=== PATIENT | female | born 1985 | race Caucasian/White ===

== ENCOUNTER 2017-12-07 08:10 | Inpatient (IN) | payer OTHER, SELFPAY ==
--- NOTE | 2017-12-07 08:55 | PCM.HP.OB ---
- Problem List (1) Language barrier affecting health care Status: Acute (2) Precipitous delivery, delivered (current hospitalization) Status: Resolved History Date of Admission: 12/07/17 Final JOVANNY: 12/22/17 Final JOVANNY Source: LMP Gestational age: 37 Weeks and 6 Days History of this : See [facility] Records for more Information Initiated care @ 13 weeks x 9 visits No complications noted with care Pertinent Past Medical History: Noncontributory No known Allergies Vitamin Smoking Status: Never smoker Alcohol: None Drug Use: none Number of Fetus(es): 1 Review of Systems Constitutional: Denies: Chills, Fever, Weight Change HEENT: Denies: Head Aches, Sinus Congestion, Sinus Drainage Cardiovascular: Denies: Chest Pain, Palpitations Respiratory: Denies: Cough, Shortness of breath at rest, Sputum production Gastrointestinal: Denies: Abdominal Pain, Nausea, Vomiting Genitourinary: Denies: Dysuria Gynecological: Denies: Vaginal discharge Musculoskeletal: Denies: Joint Pain, Joint Tenderness Skin: Denies: Rash Neurological: Denies: Numbness, Tingling, Focal weakness Psychiatric: Denies: Anxiety, Depression, Homicidal Ideations, Suicidal Ideations Hematologic/ Lymphatic: Denies: Easy Bruising, Easy Bleeding Unable to obtain accurate/complete ROS d/t: ROS obtained with assistance from Physical Exam Vitals: See Nursing Note for Vital Signs See Vaginal Delivery Report for information re: precipitous vaginal delivery General: Alert, Oriented x3, No apparent distress Cardiovascular: Regular rate, Regular Rhythm Lungs: Clear to auscultation, Normal air movement Abdomen: Bowel Sounds Present, Non Tender, - - FF midline @ umbilicus Extremities:: No edema Assessment/Plan Active and Suspected Problems Language barrier affecting health care (Acute) A: 32 y/o @ 37.6 weeks, Precipitous Vaginal Delivery without Complication, Stable P: 1) Admit patient - start PP orders at this time. 2) Dr. Aly LARA notified of admission and delivery Mayelin Calderón CNM
[2017-12-07 08:57] VITALS: BMI 33.8
[2017-12-07 09:01] LABS: Hematocrit 42.2 % (37-47); Hemoglobin 13.9 g/dl (12.0-15.0); Mean Corp Hgb Conc 32.9 g/gl (32-36); Mean Corpuscular Hgb 31.8 pg (27.0-32.0); Mean Corpuscular Volume 96.6 fL (81-99); Mean Platelet Vol. 11.5 fl (6.2-12.0); Platelet Count 199 K/mm3 (150-450); RBC Distribution Width CV 14.2 % (11.6-14.6); RBC Distribution Width SD 50.2 fl (35.1-43.9); Red Blood Count 4.37 M/mm3 (4.2-5.4); White Blood Count 11.8 K/mm3 (4.4-11.0)
[2017-12-07 09:02] LABS: Scan Indicated on CBC? Y/N NO
--- NOTE | 2017-12-07 09:04 | HP.PCM_ITS ---
- Problem List (1) Language barrier affecting health care Status: Acute (2) Precipitous delivery, delivered (current hospitalization) Status: Resolved History Date of Admission: 12/07/17 Final JOVANNY: 12/22/17 Final JOVANNY Source: LMP Gestational age: 37 Weeks and 6 Days History of this : See [facility] Records for more Information Initiated care @ 13 weeks x 9 visits No complications noted with care Pertinent Past Medical History: Noncontributory No known Allergies Vitamin Smoking Status: Never smoker Alcohol: None Drug Use: none Number of Fetus(es): 1 Review of Systems Constitutional: Denies: Chills, Fever, Weight Change HEENT: Denies: Head Aches, Sinus Congestion, Sinus Drainage Cardiovascular: Denies: Chest Pain, Palpitations Respiratory: Denies: Cough, Shortness of breath at rest, Sputum production Gastrointestinal: Denies: Abdominal Pain, Nausea, Vomiting Genitourinary: Denies: Dysuria Gynecological: Denies: Vaginal discharge Musculoskeletal: Denies: Joint Pain, Joint Tenderness Skin: Denies: Rash Neurological: Denies: Numbness, Tingling, Focal weakness Psychiatric: Denies: Anxiety, Depression, Homicidal Ideations, Suicidal Ideations Hematologic/ Lymphatic: Denies: Easy Bruising, Easy Bleeding Unable to obtain accurate/complete ROS d/t: ROS obtained with assistance from Physical Exam Vitals: See Nursing Note for Vital Signs See Vaginal Delivery Report for information re: precipitous vaginal delivery General: Alert, Oriented x3, No apparent distress Cardiovascular: Regular rate, Regular Rhythm Lungs: Clear to auscultation, Normal air movement Abdomen: Bowel Sounds Present, Non Tender, - - FF midline @ umbilicus Extremities:: No edema Assessment/Plan Active and Suspected Problems Language barrier affecting health care (Acute) A: 32 y/o @ 37.6 weeks, Precipitous Vaginal Delivery without Complication, Stable P: 1) Admit patient - start PP orders at this time. 2) Dr. Aly LARA notified of admission and delivery Mayelin Calderón CNM
--- NOTE | 2017-12-07 09:05 | PCM.OB.VAG ---
- Problem List (1) Language barrier affecting health care Status: Acute (2) Precipitous delivery, delivered (current hospitalization) Status: Resolved Vaginal Delivery Maternal Presentation: Active Labor, Spontaneous Rupture of Membranes Amniotic Membrane Rupture Type: Spontaneous Rupture of Membrane time: 744 Amniotic Fluid Description: Clear Final JOVANNY: 12/22/17 Gestational age: 37 Weeks and 6 Days Date of Procedure: 12/07/17 Pre-Operative Diagnosis: Second stage of labor Post-Operative Diagnosis: of viable girl Surgery/ Procedure Performed: Spontaneous Vaginal Delivery Type of Anesthesia: None Description of Procedure: Patient presented to triage in wheelchair in advanced active labor. Patient reports sudden onset of contractions this morning within last hour, denied having regular contractions, vaginal bloody show or SROM. When patient moved from wheelchair to bed, bulge in pants noted from nursing staff. When pants removed baby's head was . Spontaneous delivery of occurred at approximately 0815 with subsequent quick spontaneous delivery of placenta. Nursing staff in attendance of - this budget controller provider was called from home to attend to afterbirth care and evaluation of precipitous delivery. Apgars 8 and 9. weight pending. Placenta intact with 3VC, placental triage WNL. Upon inspection of vaginal vault, no lacerations noted. FF midline @ 2FB below umbilicus. EBL = 100cc. Vaginal sweep negative. Baby to breast, [id number] and bonding initiated. Mayelin Calderón CNM Presentation: Vertex Placental Delivery Description: Spontaneous Placenta Disposition: [facility] Cord Vessel Description: 3 Vessels Cord Entanglement: None Estimated Blood Loss: 100 A gender: Female (1 minute): 8 (5 minute): 9 Episiotomy Description: None Laceration: None Medications given after delivery: IV Pitocin Complications: None
--- NOTE | 2017-12-07 09:13 | OP.PCM_ITS ---
- Problem List (1) Language barrier affecting health care Status: Acute (2) Precipitous delivery, delivered (current hospitalization) Status: Resolved Vaginal Delivery Maternal Presentation: Active Labor, Spontaneous Rupture of Membranes Amniotic Membrane Rupture Type: Spontaneous Rupture of Membrane time: 744 Amniotic Fluid Description: Clear Final JOVANNY: 12/22/17 Gestational age: 37 Weeks and 6 Days Date of Procedure: 12/07/17 Pre-Operative Diagnosis: Second stage of labor Post-Operative Diagnosis: of viable girl Surgery/ Procedure Performed: Spontaneous Vaginal Delivery Type of Anesthesia: None Description of Procedure: Patient presented to triage in wheelchair in advanced active labor. Patient reports sudden onset of contractions this morning within last hour, denied having regular contractions, vaginal bloody show or SROM. When patient moved from wheelchair to bed, bulge in pants noted from nursing staff. When pants removed baby's head was . Spontaneous delivery of occurred at approximately 0815 with subsequent quick spontaneous delivery of placenta. Nursing staff in attendance of - this ground host/hostess provider was called from home to attend to afterbirth care and evaluation of precipitous delivery. Apgars 8 and 9. weight pending. Placenta intact with 3VC, placental triage WNL. Upon inspection of vaginal vault, no lacerations noted. FF midline @ 2FB below umbilicus. EBL = 100cc. Vaginal sweep negative. Baby to breast, skin -to-skin and bonding initiated. Mayelin Calderón CNM Presentation: Vertex Placental Delivery Description: Spontaneous Placenta Disposition: [facility] Cord Vessel Description: 3 Vessels Cord Entanglement: None Estimated Blood Loss: 100 Infant A gender: Female (1 minute): 8 (5 minute): 9 Episiotomy Description: None Laceration: None Medications given after delivery: IV Pitocin Complications: None
[2017-12-07 10:48] VITALS: BP 127/68; PULSE 75; RESP 16; TEMP 36.6; O2SAT 99
[2017-12-07 13:50] VITALS: BP 90/50; PULSE 66; RESP 16; TEMP 36.4; O2SAT 99
[2017-12-07 17:01] VITALS: BP 94/49; PULSE 54; RESP 16; TEMP 36.4; O2SAT 99
[2017-12-07 19:40] VITALS: BP 102/59; PULSE 75; RESP 16; TEMP 37.1; O2SAT 96
[2017-12-08] VITALS: BP 94/47; PULSE 70; RESP 18; TEMP 37.1; O2SAT 97
[2017-12-08 04:32] VITALS: BP 99/52; PULSE 68; RESP 18; TEMP 37.2; O2SAT 100
[2017-12-08 09:00] VITALS: BP 103/65; PULSE 78; RESP 18; TEMP 37.3; O2SAT 98
--- NOTE | 2017-12-08 09:37 | NURSING ---
Patient and spouse given [facility] booklet, safe sleep brochure, and hepatitis B handouts in [place]ovan. The patient's spouse speaks Norwegian. Verbal discharge instructions given to spouse. He states they feel comfortable going home and deny having questions at this time.
--- NOTE | 2017-12-08 09:39 | DCINST_ITS ---
Discharge Diet: No Restrictions Discharge Activity: Return to Normal Activity, May not drive while taking narcotic pain medications., May Shower May resume sexual activity in: 4-6 weeks Additional Activity Instructions:: Nothing in the vagina for 4-6 weeks. You may return to work/school in 6 weeks. Call your doctor if your incision/area has: Continuous Slow Oozing, Sudden Increased Bleeding, Increased Pain/ Swelling, Increased Redness, Foul Smelling Discharge Call your doctor if you observe: Fever of 101 or Higher, Inability to urinate, Inability to have a bowel movement, Using more than one pad per hour Additional Instructions: If you experience any of the following, contact your healthcare provider. * Bleeding that soaks a pad every hour for 2 hours * Fever 100.4 or higher * Unrelieved incision or abdominal pain * Swelling, redness, discharge or bleeding from your incision or episiotomy site * Your incision begins to separate * Problems urinating (including inability to urinate or burning while urinating) . * Visual changes * Severe headache * Flu-like symptoms * Pain or redness in one of both of your breasts * Pain, warmth, tenderness or swelling in your legs, especially the calf area * Frequent nausea and vomiting * Symptoms of depression or anxiety If you experience any of the following, call 911 or go to the nearest Emergency Room. * Chest pain * Problems breathing * Seizure activity * Partial or complete paralysis of a body part, slurred speech, weakness or drooping of the face, or a sudden inability to walk or hold your balance Allergies/Adverse Reactions: Allergies No Known Allergies Allergy (Verified 12/07/17 08:58) Medications to take at Discharge Vit Calc,Iron,Folic [ Vitamins] 1 tab PO DAILY 12/07/17 When: Call to make an appointment with your doctor in 4 or 5 weeks for pre-op visit to plan tubal ligation surgery
--- NOTE | 2017-12-08 09:41 | PCM.PN.BLA ---
Progress Note S: Patient in bed, denies any issues or pain at this time. This swiss-speaking provider also assisted in translation of rounds visit by assistance from patient's . Patient denies abdominal pain, SCHULTZ, blurred vision or issues with urination or ambulation. Patient desires discharge to home today. Patient desires tubal ligation surgery, discussed how the scheduling for that procedure would be done. All patient questions answered. O: VSS, Afebrile Breasts without erythema, no cracks or blisters on nipples Abdomen NT x 4 quadrants, FF midline 2FB below umbilicus Scant rubra lochia, perineum intact Negative calf tenderness to palpation, +2/4 reflexes in LE, no edema A: 32 y/o s/p without complication, PPD #1, Normal course P: 1) Discharge to home today pending discharge 2) Patient to RTC at [facility] office for pre-op visit with MD to schedule PPTL surgery 3) Anticipatory discharge PP teaching reviewed Mayelin Calderón CNM
--- NOTE | 2017-12-08 09:48 | PN_ITS ---
Progress Note S: Patient in bed, denies any issues or pain at this time. This east timorese- speaking provider also assisted in translation of rounds visit by assistance from patient's . Patient denies abdominal pain, SCHULTZ, blurred vision or issues with urination or ambulation. Patient desires discharge to home today. Patient desires tubal ligation surgery, discussed how the scheduling for that procedure would be done. All patient questions answered. O: VSS, Afebrile Breasts without erythema, no cracks or blisters on nipples Abdomen NT x 4 quadrants, FF midline 2FB below umbilicus Scant rubra lochia, perineum intact Negative calf tenderness to palpation, +2/4 reflexes in LE, no edema A: 32 y/o s/p without complication, PPD #1, Normal course P: 1) Discharge to home today pending discharge 2) Patient to RTC at [facility] office for pre-op visit with MD to schedule PPTL surgery 3) Anticipatory discharge PP teaching reviewed Mayelin Calderón CNM
--- NOTE | 2017-12-08 11:11 | NURSING ---
Mother and infant ID bands verified by mother and father of baby.
== END 2017-12-08 11:00 | disposition home or self-care (01) | DRG 775 ==
PROVIDERS: Admitting Provider Obstetrics & Gynecology; Visit Provider Obstetrics & Gynecology
DX: O62.3 Precipitate labor (principal); O42.02 Full-term premature rupture of membranes, onset of labor within 24 hours of rupture; Z3A.37 37 weeks gestation of pregnancy; Z37.0 Single live birth; Z60.3 Acculturation difficulty
CPT/HCPCS: 85027; 86850; 86900; 99218; G0378

== ENCOUNTER 2018-01-23 09:38 | Day surgery (SDC) | payer OTHER, SELFPAY ==
[2018-01-23] VITALS (7 sets, daily range): BP systolic 104–122; BP diastolic 73–79; PULSE 66–85; RESP 16–18; TEMP 36.6–37.1; O2SAT 94–98; BMI 29.0
--- NOTE | 2018-01-23 | FALS_PTH ---
PATIENT: ANTHONY GARDINER LOC: [facility] – [place] U#:[id number] AGE/SX: 32/F ROOM: RE01/23/[address]: Dr. Becka Lu MD : [id number] BED: DIS: 01/23/2018 SPEC #: [id number] RECD: 01/24/18 13:18 STATUS: KIM RECyn #: [id number] KUSUM: 01/23/18 00:[address]: Becka Lu DEPT: SURGICAL PATHOLOGY RECD BY: Henrik Aponte ENTERED: 01/24/18 13:18 SP TYPE: FALL TUBES OTHR DR: No Primary Care Phys Tissues: Fallopian tube Procedures: Surgery Specimen Level II HEADER OPERATION: Laparoscopic salpingectomy PRE-OP DIAGNOSIS: Sterilization request TISSUE SUBMITTED: Bilateral fallopian tubes MICROSCOPIC DIAGNOSIS Bilateral fallopian tubes, salpingectomy: Bilateral fallopian tubes including fimbrial ends, no pathologic diagnosis. SJ:juve 01/28/18 MICROSCOPIC DESCRIPTION Slides are reviewed. GROSS DESCRIPTION Received is one container labeled with the patient's name and designated bilateral fallopian tubes. The specimen consists of bilateral fallopian tubes including fimbrial ends. The tubes are not identified as right or left. One of the fallopian tubes measure 6.5 cm in length and 0.6 cm in diameter and the second fallopian tube measures 6 cm in length and 0.6 cm in diameter. Sections reveal unremarkable cut surfaces. Full Stack Web Developer sections are submitted in two cassettes with each cassette containing one fallopian tube. / DAVON:juve 01/24/18 TC:4 CPT: 30994 x2
[2018-01-23 10:05] LABS: Internal QC Validated? YES +Cl - CLEAR BKGD; Pregnancy, Urine Negative Negative
[2018-01-23] MEDS: Celecoxib 200 MG Capsule PO (10:37)
[2018-01-23] MEDS: Acetaminophen 500 MG Tablet 1000 MG PO (10:37)
[2018-01-23] MEDS: Ondansetron ODT 4 MG Tablet 16 MG PO (10:38)
[2018-01-23] MEDS: Gabapentin 600 MG Tablet PO (10:38)
--- NOTE | 2018-01-23 13:15 | DCINST_ITS ---
Discharge Diet: No Restrictions - Increase fluid intake for the next 48 hours. Discharge Activity: Return to Normal Activity, May Drive - when you are no longer taking pain/narcotic meds., May Shower, May Take a Tub Bath - in 7 days Return to work on:: 01/27/18 May resume sexual activity in: No Restrictions Additional Activity Instructions:: Ambulate often the next week after surgery. Nothing in the vagina for 5 days. Call your doctor if your incision/area has: Continuous Slow Oozing, Sudden Increased Bleeding, Increased Pain/ Swelling, Increased Redness, Foul Smelling Discharge Call your doctor if you observe: Fever of 101 or Higher Allergies/Adverse Reactions: Allergies No Known Allergies Allergy (Verified 01/21/18 14:46) Medications to take at Discharge Hydrocodone/Acetaminophen [[place] 5-325 Tablet] 1 each PO Q6H PRN PRN 3 Days #10 tablet 01/23/18 Ibuprofen [Motrin] 600 mg PO Q6H PRN #60 tab 01/23/18 The following prescriptions were given: Hydrocodone/Acetaminophen [[place] 5-325 Tablet] 1 each PO Q6H PRN PRN 3 Days #10 tablet PRN Reason: Pain Ibuprofen [Motrin] 600 mg PO Q6H PRN #60 tab PRN Reason: Pain Primary Care Physician: Care Physician,No Primary [Primary Care Provider] - Please Follow Up With: Becka Lu MD - [phone] When: 4-6 weeks or prn
--- NOTE | 2018-01-23 13:17 | PCM.OPRPT ---
Report of Operation Date of Procedure: 01/23/18 Pre-Operative Diagnosis: sterilization Post-Operative Diagnosis: same Surgery/Procedure Performed:: laprascopic bilateral salpingectomy inside steward/stewardess: None Type of Anesthesia:: General Anesthesiologist: Donna Way Special Medications: none Specimen's removed: bilateral tubes Drains: none Estimated Blood Loss (mL): 10cc Fluids Replaced: 1500 cc Description of Procedure: The patient was taken to the operating room where she was prepped and draped in the dorsolithotomy position. A weighted speculum was placed in the vagina and the anterior lip of the cervix was grasped with a tenaculum. The Norma uterine manipulator was placed and the remainder of the instruments were removed from the vagina. Attention was turned to the abdomen. All port sites were infiltrated with 0.5% Marcaine before skin incisions were made. A 5 mm intraumbilical incision was made. The anterior abdominal wall was tented up with 2 towel clamps while a 5 mm blade less trocar and sleeve were directly inserted. Intraperitoneal placement was confirmed with the laparoscope. The pneumoperitoneum was created and the underlying abdominal contents were intact. The patient was placed in Trendelenburg. A right lower quadrant port was placed under direct visualization without difficulty. The alligator grasper was placed directly approximately 3 cm above the symphysis. The LigaSure device was used to clamp seal and transect the antimesenteric portions of the right tube to the cornual insertion of the uterus. The tube was amputated from the uterus and the pedicles were all confirmed to be hemostatic. The same procedure was performed on the contralateral side. The specimens were brought out through a 5 mm port. The pedicles were again examined and found to be hemostatic. The lateral ports were removed under direct visualization and no active bleeding was noted. The pneumoperitoneum was released. The skin incisions were closed with Monocryl suture in a subcuticular fashion and skin glue . The vaginal instruments were removed and the vaginal sweep was completed by me. The procedure was performed by me with assistance other than as dictated above. All sponge and needle counts were correct and the patient was taken to the recovery room in stable condition. Grafts/Implants Used: none - Complications none - Admit VTE Documentation VTE Present on Admission: No VTE Mechan Device Prophylaxis: SCD's VTE Pharm Prophylaxis ordered?: No Reason prophylaxis not ordered:: Procedure Not Indicated
[2018-01-23] MEDS: Bupivacaine Mpf 0.5% 30 ML VIAL (13:23)
== END 2018-01-23 17:22 | disposition home or self-care (01) ==
LOC: SDC 09:41 → AC 10:28
PROVIDERS: Visit Provider Obstetrics & Gynecology
PROC: (CPT 58661; principal; 2018-01-23 12:20)
DX: Z30.2 Encounter for sterilization (principal)
CPT/HCPCS: 58661; 81025; 88302; J7120; J2405